=== PATIENT | male | born 1990 | race Two or more races ===

== ENCOUNTER 2017-05-18 11:11 | Emergency (ER) | payer OTHER ==
--- NOTE | 2017-05-18 11:23 | EDPHY ---
H & P Stated Complaint: Fall ~ 9-12', no LOC'facial inj,L arm/leg inj. No c/s tenderness HPI/ROS: CHIEF COMPLAINT: Fall from 12 feet HISTORY OF PRESENT ILLNESS: This patient is a Cambodian-speaking 27 year old male arriving via EMS complaining of facial pain, left wrist and knee pain, secondary to a fall from 12 feet onto concrete shortly prior to arrival. 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 He denies loss of consciousness, but did feel lightheaded immediately after falling. He states his left hand, left knee, and nose hurt. He denies any pain or misalignment with his teeth. He denies headache, neck pain , back pain, abdominal pain, or chest pain. He denies numbness or weakness. HPI obtained primarily through wood engraver at bedside. REVIEW OF SYSTEMS: A ten point review of systems was performed and is negative with the exception of the items mentioned in the HPI. 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 He does not smoke. He does not drink alcohol. No illicits. He is single. - Physical Exam Exam: General: Cervical collar in place. The patient is in no acute distress. The patient is alert. Jones Coma Score is 15. Initial BP 157/93. Head: Normocephalic/atraumatic. No Todd's sign. No raccoon eyes. Neck: Nontender with palpation of the cervical spine. Trachea is midline. Eyes: PERRLA. EOMI. No subconjunctival hemorrhage. Ears nose and throat: No hemotympanum. Nares are patent, with clotted nasal blood. No septal hematoma. No dental injury or malocclusion. Airway is patent. Lungs: No rib tenderness, crepitus, or subcutaneous emphysema. Breath sounds are equal and audible bilaterally. No wheezes, rales, or rhonchi. Cardiac: Heart has regular rate and rhythm without murmur, rub, or gallop. Abdomen: Soft, nontender, and nondistended. No guarding or rebound. Bowel sounds are present. Back: No vertebral tenderness. Skin: No ecchymoses. Skin is warm and dry. Extremities: Tender to palpation of left wrist with mild swelling/deformity noted. Tender to palpation of left patella, pain with attempted ROM left knee. Pelvis is stable. Hips are nontender. Pulses: 2+ radial, femoral and dorsalis pedis pulses bilaterally. Neuro: The patient is alert and oriented. Sensation is intact to light touch of all 4 extremities. Strength is 5 over 5 with testing of major motor groups. Cranial nerves are normal as tested. PERRLA. EOMI. Facial expression symmetric. Hearing intact to spoken voice. Constitutional: Initial Vital Signs Heart Rate 73 05/18/17 11:11 Respiratory Rate 20 05/18/17 11:11 Blood Pressure 157/93 H 05/18/17 11:11 O2 Sat (%) 99 05/18/17 11:11 O2 Delivery Mode Room Air Allergies/Adverse Reactions: No Known Allergies Allergy (Unverified 05/18/17 11:20) Home Medications: Medication Instructions Recorded Hydrocodone/APAP 5/325 [[place] 1 - 2 tab PO Q4 PRN #20 tab 05/18/17 5/325 (RX)] Medical Decision Making Procedures: A sugar-tong splint splint was applied by the emergency department optics manufacturing technician. I examined the patient after splint application. Alignment was appropriate. Neurovascular status was intact. Sling applied. Left leg immoblizere (velcro) applied by ED optics manufacturing technician. Patient able to ambulate with one crutch assist. ED Course/Re-evaluation: 12:[address] Miller, radiologist. Negative CT head and neck. Cervical collar removed. No pain with AROM of neck. Xray left wrist and forearm shows intra articular distal radius fracture with mild displacement and an ulnar styloid fracture. Xray of left knee reveals comminuted patellar fracture. Patient examined three times during his stay in ED. No new injuries discovered. He remained neurologically intact. At no time did he have abdominal pain. Left wrist splinted with ortho glass sugar tong/sling applied. Knee immobilizer applied left leg. He was able to walk with one crutch. I spoke with Dr. Potts who will see patient in follow up. Weight bearing as tolerated left leg. Importance of follow up emphasized. I am concerned about availability of follow up and also recommended that patient check with his employer, as this is an on the job injury. Differential Diagnosis: DDX of fall includes but is not limited to skull fracture, ICH, concussion, cervical injury, vertebral injury, fracture, dislocation, sprain, laceration, abrasion, contusion, intra-abdominal injury, and intra-thoraacic injury. - Data Points Laboratory Results: Laboratory Results 05/18/17 11:32 05/18/17 11:32 Medications Given: Discontinued Medications Hydrocodone Bitart/Acetaminophen ([place] 5/325) 2 tab PO EDNOW ONE Stop: 05/18/17 15:09 Last Admin: 05/18/17 15:16 Dose: 2 tab Hydromorphone HCl (Dilaudid) 1 mg IVP EDNOW ONE Stop: 05/18/17 11:34 Last Admin: 05/18/17 11:37 Dose: 1 mg Ondansetron HCl (Zofran) 4 mg IVP EDNOW ONE Stop: 05/18/17 11:34 Last Admin: 05/18/17 11:37 Dose: 4 mg Departure - Departure Disposition: Home, Routine, Self-Care Clinical Impression: Right patella fracture Qualifiers: Encounter type: initial encounter Fracture type: closed Fracture morphology: comminuted Fracture alignment: nondisplaced Qualified Code(s): S82.044A - Nondisplaced comminuted fracture of right patella, initial encounter for closed fracture Radius and ulna distal fracture Qualifiers: Encounter type: initial encounter Fracture type: closed Laterality: left Qualified Code(s): S52.502A - Unspecified fracture of the lower end of left radius, initial encounter for closed fracture; S52.602A - Unspecified fracture of lower end of left ulna, initial encounter for closed fracture Condition: Good Instructions: Wrist Fracture in Adults (ED), Patellar Fracture (ED), RICE Therapy (ED) Additional Instructions: Adult Pain & Fever Control: We recommend Acetaminophen (Tylenol) and Ibuprofen (Motrin,Advil) for pain and fever control. When fever is high or pain severe, both drugs can be used at the same time, but at different intervals. Please note the time differences. Your dose is: Acetaminophen 650mg every 4 to 6 hours Ibuprofen 400mg every 8 hours with food OR Note: do not take Acetaminophen with Hydrocodone (Vicodin, Lortab) or Oycodone (Percocet). These medications also contain Acetaminophen. No more than 3000mg of Acetaminophen should be taken in 24 hours (for an adult).Wear the splint on your left arm until seen by an orthopedist. Wear the knee immobilizer until seen by an orthopedist. It is okay to put some weight down on your left leg. It is very important that you call the orthopedist and schedule an appointment. Let the office staff know that you have a broken wrist and a broken kneecap. Ice and elevate your left knee and your left wrist. If your employer wants you to see a specific doctor, you should do that. I am referring you to the orthopedist conference center manager for this hospital. His name is Dr. Potts. He has looked at your xrays today. Control De Dolor y Fiebre: Les recomendamos Acetaminofina (Tylenol) y Ibuprofeno (Motrin, Advil) para dolor y control de la fiebre. Cuando la fiebre es macie o el dolor es bryanna, ambas drogas puede ser usadas a la misma vez. Por favor tenga en cuenta la diferencia de horarios en el cual deben ser tomadas. Osorio dosis es: Acetaminofina [650]mg cada 4-6 horas Ibuprofeno [400]mg cada 6-8 horas con comida No tome Acetaminofina con Hydrocodone (Vicodin, Lortab) o Oxycodone (Percocet. Estas medicinas tambien contienen Acetaminofina. No mas de 4000mg de Acetaminofina deben ser tomados en 24 horas. Use el inmovilizador en osorio brazo jesus hasta que lo revise un ortopdico. Use el inmovilizador en osorio rodilla hasta que lo revise un ortopedista. Est jenna apoyar poco peso en la lady freitas. Es muy importante que llame el ortopedista y nicolás enid shyanne. Deje la oficina saber que tiene enid mueca fracturada y enid rotula fracturada. use hielo y eleve osorio rodilla y osorio mueca. Si osorio empleador quiere que usted madyson un doctor especifico, usted debe hacer eso. Lo estoy refiriendo al ortopedista de [facility]. Osorio nombre es . El indigo dottie radiografas hoy. Referrals: Nikita Potts MD [Medical Doctor] - As per Instructions Prescriptions: Hydrocodone/APAP 5/325 [[place] 5/325 (RX)] 1 - 2 tab PO Q4 PRN #20 tab PRN Reason: pain Print Language: Cambodian Report Scribed for: Juju Avila Report Scribed by: Mamie Castillo Date of Report: 05/18/17 Time of Report: 11:35 Physician Review and Approval Statement: 05/18/17 11:23 Portions of this note were transcribed by the center medical and lab director. I, Dr. Juju Avila, personally performed the history, physical exam, and medical decision- making; and confirmed the accuracy of the information in the transcribed note.
[2017-05-18] MEDS ORDERED: HYDROmorphONE/DILAUDID 1 MG/ML SYR IVP ONE (11:33)
[2017-05-18] MEDS ORDERED: ONDANSETRON 4 MG/2 ML VIAL IVP ONE (11:33)
[2017-05-18 12:04] LABS: % IMMATURE GRANULYOCYTES 0.3 % (0.0-1.1); ABSOLUTE IMMATURE GRANULOCYTES 0.02 10^3/uL (0.00-0.10); ADD DIFF? NO; ADD MORPH? NO; ADD SCAN? NO; ATYPICAL LYMPHOCYTE FLAG 10 (0-99); FRAGMENT RBC FLAG 0 (0-99); HEMATOCRIT 48.1 % (40.0-51.0); HEMOGLOBIN 17.4 g/dL (13.7-17.5); LEFT SHIFT FLG 0 (0-99); LIPEMIA HEMOLYSIS FLAG 90 (0-99); MEAN CELL HEMOGLOBIN 36.2 pg (27.9-34.1); MEAN CELL HEMOGLOBIN CONCENTR. 36.2 g/dL (32.4-36.7); MEAN PLATELET VOLUME 8.6 fL (8.7-11.7); PLATELET CLUMPS FLAG 0 (0-99); PLATELET COUNT 230 10^3/uL (150-400); RED BLOOD CELL COUNT 4.81 10^6/uL (4.40-6.38); RED CELL DISTRIBUTION WIDTH 12.4 % (11.5-15.2)
[2017-05-18 12:06] LABS: ANION GAP 13 mEq/L (8-16); CALCIUM 9.4 mg/dL (8.5-10.4); CARBON DIOXIDE 21 mEq/l (22-31); CHLORIDE 106 mEq/L (97-110); GLOMERULAR FILTRATION RATE > 60; GLUCOSE 101 mg/dL (70-100); POTASSIUM 4.2 mEq/L (3.5-5.2); SODIUM 140 mEq/L (134-144)
[2017-05-18] MEDS ORDERED: HYDROCODONE/APAP 5/325 TAB ONE ×2 (15:07)
[2017-05-18] MEDS ORDERED: HYDROCODONE/APAP 5/325 TAB PO ONE (15:08)
[2017-05-18 15:46] VITALS: BP 128/78; PULSE 74; RESP 16; TEMP 97.9; O2SAT 96
== END 2017-05-18 15:45 | disposition home or self-care (01) ==
DX: S52.502A Unspecified fracture of the lower end of left radius, initial encounter for closed fracture (principal); S82.044A Nondisplaced comminuted fracture of right patella, initial encounter for closed fracture; S52.602A Unspecified fracture of lower end of left ulna, initial encounter for closed fracture; W17.89XA Other fall from one level to another, initial encounter; Y92.69 Other specified industrial and construction area as the place of occurrence of the external cause; Y99.0 Civilian activity done for income or pay; Y93.89 Activity, other specified
CPT/HCPCS: 96374; A4565; J1170; J2405; L1830